=== PATIENT | male | born 1960 | race Caucasian/White ===

== ENCOUNTER 2022-02-07 20:44 | Inpatient (IN) ==
[2022-02-07 21:08] LABS: Basophils # 0.1 10*3/uL (0.0-0.2); Basophils % 0.6 % (0.0-0.8); Eosinophils # 0.2 10*3/uL (0.0-0.87); Eosinophils % 2.3 % (0.00-10.9); Hematocrit 49.1 VOL% (42.0-52.0); Hemoglobin 17.2 GM/DL (14.0-18.0); Immature Granulocytes % 0.4 %; Immature Granulocytes Absolute 0.03 #; Lymphocytes # 2.4 10*3/uL (1.4-4.0); Lymphocytes % 30.6 % (21.2-54.2); Mean Corpuscular Volume 97.2 FL (87-102); Mean Platelet Volume 10.7 FL (9.6-12.0); Monocytes # 0.5 10*3/uL (0.11-0.8); Monocytes % 6.2 % (1.7-12.7); Neutrophils % 59.9 % (38.7-73.9); Platelet Count 205 T/CUMM (130-400); Red Blood Count 5.05 MC/CUMM (3.8-5.5); Red Cell Distribution Width 13.2 % (9.3-17.3); White Blood Count 7.8 T/CUMM (4-12)
[2022-02-07 21:19] LABS: INR 0.9; PT Patient Result 10.5 SECS (10.5-12.0); Partial Thromboplastin Time 30.1 SECS (23.7-32.9)
[2022-02-07] MEDS ORDERED: MORPHINE 2 MG/1 ML SYRINGE IV STA ×2 (21:48→22:38)
[2022-02-07] MEDS ORDERED: ONDANSETRON 4 MG/2 ML VIAL IV STA (21:48)
[2022-02-07] MEDS ORDERED: NITROGLYCERIN 2% OINT 1 INCH/GM PACK TOP STA (21:49)
[2022-02-07 21:59] LABS: Albumin 3.7 G/DL (3.4-5.0); Bilirubin,Total 1.3 MG/DL (0.20-1.00); Calcium 9.1 MG/DL (8.5-10.1); Potassium 4.1 MMOL/L (3.5-5.1); Total Protein 6.9 G/DL (6.4-8.2)
[2022-02-07] MEDS ORDERED: hydrALAZINE 20 MG/1 ML VIAL IV STA (22:38)
[2022-02-07] MEDS ORDERED: HYDROmorphone 1 MG/1 ML SYRINGE IV STA (23:24)
[2022-02-07] MEDS ORDERED: ALUM/MAG/SIMETH/LIDO VISC 1:1 30 ML BOTTLE PO STA (23:24)
[2022-02-08] MEDS ORDERED: ASPIRIN CHEW 81 MG TABLET PO STA (01:13)
[2022-02-08] MEDS ORDERED: ONDANSETRON 4 MG/2 ML VIAL IV PRN (01:40)
[2022-02-08] MEDS ORDERED: hydrALAZINE 20 MG/1 ML VIAL IV PRN (01:40)
[2022-02-08] MEDS ORDERED: SIMETHICONE CHEW 125 MG TABLET PO PRN (01:40)
[2022-02-08] MEDS ORDERED: MAGNESIUM SULF RIDER 2 GM/50 ML PREMIX IV PRN (01:40)
[2022-02-08] MEDS ORDERED: NITROGLYCERIN SL 0.4 MG TABLET SL PRN (01:40)
[2022-02-08] MEDS ORDERED: POTASSIUM CHLORIDE 20 MEQ TABLET PO PRN ×2 (01:40)
[2022-02-08] MEDS ORDERED: GLUCAGON 1 MG VIAL IM PRN (01:40)
[2022-02-08] MEDS ORDERED: MAGNESIUM SULF RIDER 4 GM/100 ML PREMIX IV PRN (01:40)
[2022-02-08] MEDS ORDERED: MORPHINE 2 MG/1 ML SYRINGE IV PRN (01:40)
[2022-02-08] MEDS ORDERED: ACETAMINOPHEN 325 MG TABLET PO PRN (01:40)
[2022-02-08] MEDS ORDERED: ENOXAPARIN 100 MG/ML SYRINGE SUBCUT STA (01:50)
[2022-02-08] MEDS ORDERED: CLOPIDOGREL 300 MG TABLET PO STA (01:50)
[2022-02-08] MEDS ORDERED: ATORVASTATIN 40 MG TABLET PO STA (01:50)
[2022-02-08] MEDS ORDERED: DEXTROSE 10% 250 ML BAG IV PRN (01:53)
[2022-02-08] MEDS: carvediloL 3.125 MG TABLET PO SCH ×3 (02:20→21:45)
[2022-02-08] MEDS: ENOXAPARIN 80 MG/0.8 ML SYRINGE SUBCUT SCH ×2 (02:20→17:27)
[2022-02-08] MEDS: ATORVASTATIN 80 MG TABLET PO SCH ×2 (03:47→21:45)
[2022-02-08 06:14] LABS: Risk Ratio 2.74; Thyroid Stimulating Hormone 3.57 uIU/ml (0.358-3.74)
[2022-02-08] MEDS ORDERED: HEPARIN/NACL 0.9% 2 UNITS/ML 3,000 UNIT/1,500 ML BAG IV ONE (08:00)
[2022-02-08] MEDS ORDERED: SODIUM CHLORIDE 0.45% 1,000 ML IV SCH (08:00)
[2022-02-08] MEDS: PANTOPRAZOLE 40 MG TABLET PO SCH (08:03)
[2022-02-08] MEDS: lisinopriL 2.5 MG TABLET PO SCH (08:03)
[2022-02-08 08:10] LABS: CKMB % 11.24 %
[2022-02-08] MEDS ORDERED: MIDAZOLAM 2 MG/2 ML VIAL ONE (08:21)
[2022-02-08] MEDS ORDERED: fentaNYL 100 MCG/2 ML VIAL ONE (08:22)
[2022-02-08 08:33] LABS: High Sensitive Troponin I* 4685.9 ng/L (0-78)
[2022-02-09] MEDS: ENOXAPARIN 80 MG/0.8 ML SYRINGE SUBCUT SCH (02:00)
[2022-02-09 06:49] LABS: Basophils % 0.7 % (0.0-0.8); Eosinophils # 0.1 10*3/uL (0.0-0.87); Eosinophils % 2.5 % (0.00-10.9); Hematocrit 44.3 VOL% (42.0-52.0); Hemoglobin 15.2 GM/DL (14.0-18.0); Immature Granulocytes % 0.2 %; Immature Granulocytes Absolute 0.01 #; Lymphocytes # 1.9 10*3/uL (1.4-4.0); Lymphocytes % 32.7 % (21.2-54.2); Mean Corpuscular HGB Conc 34.3 GM/DL (32-36); Mean Corpuscular Volume 98.4 FL (87-102); Mean Platelet Volume 11.1 FL (9.6-12.0); Monocytes # 0.4 10*3/uL (0.11-0.8); Monocytes % 7.4 % (1.7-12.7); Neutrophils % 56.5 % (38.7-73.9); Platelet Count 145 T/CUMM (130-400); Red Cell Distribution Width 12.8 % (9.3-17.3); White Blood Count 5.7 T/CUMM (4-12)
[2022-02-09 07:30] LABS: Calcium 8.9 MG/DL (8.5-10.1); Osmolality,Calculated 278.4 MOS/KG (273-304); Potassium 4.5 MMOL/L (3.5-5.1)
[2022-02-09 08:21] VITALS: BP 145/73
[2022-02-09] MEDS ORDERED: ASPIRIN EC 81 MG TABLET PO SCH (09:00)
[2022-02-09] MEDS: lisinopriL 2.5 MG TABLET PO SCH (09:16)
[2022-02-09] MEDS: carvediloL 3.125 MG TABLET PO SCH (09:16)
[2022-02-09] MEDS: PANTOPRAZOLE 40 MG TABLET PO SCH (09:16)
[2022-02-09 11:00] LABS: CKMB % 5.45 %
== END 2022-02-09 12:25 | disposition home or self-care (01) | DRG 282 ==
LOC: N.ED 20:44 → N.TELES 02-08 01:40
PROVIDERS: ADMIT Emergency Medicine; ATTEND Emergency Medicine
PROC: CLCCHCL (ICD-10-PCS; 2022-02-08 08:30)